=== PATIENT | female | born 2000 | race American Indian/Alaskan Native ===

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

== ENCOUNTER 2018-05-24 | Emergency (ER) | payer MEDICAID, OTHER ==
[2018-05-24 00:20] VITALS: BP 107/69
[2018-05-24 02:36] LABS: HCG Qualitative,Urine Negative (Negative)
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
== END 2018-05-24 04:38 | disposition home or self-care (01) ==
LOC: ED
DX: S00.83XA Contusion of other part of head, initial encounter (principal); Y04.8XXA Assault by other bodily force, initial encounter; Y93.89 Activity, other specified; Y92.098 Other place in other non-institutional residence as the place of occurrence of the external cause; Y99.8 Other external cause status
CPT/HCPCS: 70450; 70486; 72100; 72125; 81025